=== PATIENT | female | born 1980 | race Caucasian/White ===

== ENCOUNTER → 2016-08-05 | Outpatient (CLI) | payer OTHER, MEDICAID ==
[~2016-08-05] MED LIST: BETAMETHASONE SOD PHOS/ACETATE SUSP 30 MG/5 ML VIAL IM SCH; BUPIVACAINE/EPINEPHRINE 0.25% PF 30 ML VIAL ONE; CLIN1CAP6 PO; DEPO150I IM; FLUT1SPR5 EACH NARE; SERT-132 PO; SODIUM CHLOR 0.9% 250 ML INJ 250 ML ONE; VANCOMYCIN HCL 1000 MG VIAL ONE; ZOLP5TAB3 PO; ZYRT10CA PO
== END ==
LOC: HOBG 10:43
PROVIDERS: ATTEND Obstetrics & Gynecology
DX: O26.872 Cervical shortening, second trimester (principal)
CPT/HCPCS: 96372; J0702

== ENCOUNTER → 2016-08-06 | Outpatient (CLI) | payer OTHER, MEDICAID ==
[~2016-08-06] MED LIST changes: -BUPIVACAINE/EPINEPHRINE 0.25% PF 30 ML VIAL ONE; -SODIUM CHLOR 0.9% 250 ML INJ 250 ML ONE; -VANCOMYCIN HCL 1000 MG VIAL ONE
== END ==
LOC: HOBG 10:47
PROVIDERS: ATTEND Obstetrics & Gynecology
DX: O26.872 Cervical shortening, second trimester (principal)
CPT/HCPCS: 96372; J0702